=== PATIENT | female | born 1970 | race Caucasian/White ===

== ENCOUNTER → 2021-10-05 | Outpatient (CLI) | payer BC ==
[~2021-10-05] MED LIST: ACET500; ESTRTP VAG; FISH1000 PO; LEVFLO500 PO; METF500 PO; METR500 PO; MOXI400 PO; MULVITMIND PO; OXYACE5T PO; PRED20; RXNEOPOLHC AS; VITAMIN B PO; VITAMIN D PO; Vitamin C100 M1 PO
[2021-10-07 13:12] LABS: CHLAMYDIA BY NAA Negative (Negative); GONOCOCCUS BY NAA Negative (Negative); TRICH VAG BY NAA Negative (Negative)
== END | disposition home or self-care (01) ==
LOC: LAB SHORT 08:24
PROVIDERS: Physician Assistant
DX: B37.3 Candidiasis of vulva and vagina (principal); R21 Rash and other nonspecific skin eruption
CPT/HCPCS: 87070; 87075; 87205; 87491; 87591; 87661

== ENCOUNTER 2021-10-26 05:53 | Day surgery (SDC) | payer BC | END 2021-10-26 23:26 | disposition home or self-care (01) | LOC: WOUND 05:53 | DX: T81.31XD Disruption of external operation (surgical) wound, not elsewhere classified, subsequent encounter (principal); Z98.82 Breast implant status; Z88.0 Allergy status to penicillin; Z88.1 Allergy status to other antibiotic agents; Z88.2 Allergy status to sulfonamides; Z87.891 Personal history of nicotine dependence | CPT/HCPCS: A9270; G0463 ==

== ENCOUNTER 2021-11-02 04:54 | Day surgery (SDC) | payer BC | END 2021-11-02 23:47 | disposition home or self-care (01) | LOC: WOUND 04:54 | DX: T81.31XA Disruption of external operation (surgical) wound, not elsewhere classified, initial encounter (principal); Y83.8 Other surgical procedures as the cause of abnormal reaction of the patient, or of later complication, without mention of misadventure at the time of the procedure | CPT/HCPCS: A9270; G0463 ==

== ENCOUNTER 2021-11-16 02:19 | Day surgery (SDC) | payer BC | END 2021-11-16 22:47 | disposition home or self-care (01) | LOC: WOUND 02:19 | DX: T81.31XA Disruption of external operation (surgical) wound, not elsewhere classified, initial encounter (principal); Y83.8 Other surgical procedures as the cause of abnormal reaction of the patient, or of later complication, without mention of misadventure at the time of the procedure; Z98.890 Other specified postprocedural states | CPT/HCPCS: A9270; G0463 ==

== ENCOUNTER 2021-11-30 01:51 | Day surgery (SDC) | payer BC | END 2021-11-30 22:54 | disposition home or self-care (01) | LOC: WOUND 01:51 | DX: T81.31XD Disruption of external operation (surgical) wound, not elsewhere classified, subsequent encounter (principal) | CPT/HCPCS: G0463 ==

== ENCOUNTER 2024-01-28 22:16 | Emergency (ER) | payer BC ==
[~2024-01-28] VITALS: Ht 162.6 cm; Wt 99.8 kg
[2024-01-28] MEDS ORDERED: Ondansetron HCl 2 MG / ML 2ML Vial IV PRN (22:35)
[2024-01-28 23:01] LABS: BASOPHILS ABSOLUTE AUTO 0.02 K/mm3 (0.00-0.23); BASOPHILS PERCENT AUTO 0 % (0-2); EOSINOPHILS ABSOLUTE AUTO 0.03 K/mm3 (0.00-0.68); EOSINOPHILS PERCENT AUTO 0 % (0-6); Hematocrit 41.6 % (33.0-51.0); Hemoglobin 14.5 g/dL (11.5-16.0); IMMATURE GRAN ABSOLUTE AUTO 0.03 K/mm3 (0.00-0.10); IMMATURE GRAN PERCENT AUTO 0 % (0-1); LYMPHOCYTES ABSOLUTE AUTO 0.49 K/mm3 (0.84-5.20); LYMPHOCYTES PERCENT AUTO 4 % (21-46); MONOCYTES ABSOLUTE AUTO 0.59 K/mm3 (0.16-1.47); MONOCYTES PERCENT AUTO 5 % (4-13); Mean Corpuscular HGB 32.8 pg (26.0-34.0); Mean Corpuscular HGB Conc 34.9 g/dL (31.5-36.5); Mean Corpuscular Volume 94 fL (80-100); Mean Platelet Volume 9.4 fL (9.1-12.4); NEUTROPHILS ABSOLUTE AUTO 11.36 K/mm3 (1.96-9.15); NEUTROPHILS PERCENT AUTO 91 % (41-73); Platelet Count 243 K/mm3 (150-400); RDW Coefficient Variation 13.1 % (11.7-14.2); RDW Standard Deviation 45.4 fL (35.1-46.3); Red Blood Cell Count 4.42 M/mm3 (3.80-5.20); White Blood Cell Count 12.52 K/mm3 (4.00-11.30)
[2024-01-28 23:19] LABS: Albumin/Globulin Ratio 1.2 (0.8-1.8); Bilirubin, Total 0.6 mg/dL (0.1-1.0); Bun/Creatinine Ratio 24.9 (12.0-20.0); Calcium, Blood 8.7 mg/dL (8.5-10.1); Creatinine, Blood 0.64 mg/dL (0.40-1.00); Globulin, Blood 3.2 g/dL (2.2-4.0); Total Protein, Blood 7.2 g/dL (6.4-8.2)
[2024-01-29 02:22] LABS: Source, Urine Clean Catch
[2024-01-29 02:25] LABS: Appearance, Urine Clear (Clear); Bilirubin, Urine Neg (Neg); Blood, Urine 3+ (Neg); Color, Urine Yellow (P-Yellow); Glucose Qualitative, Urine Neg (Neg); Ketones, Urine 2+ (Neg); Leukocyte Esterase, Urine Neg (Neg); Nitrite, Urine Neg (Neg); Protein, Urine Neg (Neg); Urobilinogen, Urine NORM (Normal)
[2024-01-29 02:32] LABS: Bacteria Few /hpf; Red Blood Cells, Urine 0-2 /hpf (0-2); Squamous Epithelial Cells Few /hpf (Few); White Blood Cells, Urine Not Seen /hpf (0-5)
[2024-01-29] MEDS ORDERED: NS 1,000 ML IV SCH (03:00)
[2024-01-29] MEDS ORDERED: Droperidol 5 mg/2 ml Vial IV ONE (03:05)
[2024-01-29] MEDS ORDERED: Ketorolac Tromethamine 30mg Vial IV ONE (03:05)
[2024-01-29] MEDS ORDERED: ONDA4ODT MM (04:39)
[2024-01-29] MEDS ORDERED: RX Prepack 2 Tabs Ondansetron ODT 4MG UD ONE (04:40)
[2024-01-29 05:07] VITALS: BP 145/72
== END 2024-01-29 05:10 | disposition home or self-care (01) ==
LOC: ER 22:16
PROVIDERS: Student in an Organized Health Care Education/Training Program
DX: K52.9 Noninfective gastroenteritis and colitis, unspecified (principal); Z88.0 Allergy status to penicillin; Z88.2 Allergy status to sulfonamides; Z88.1 Allergy status to other antibiotic agents; Z79.899 Other long term (current) drug therapy; Z79.84 Long term (current) use of oral hypoglycemic drugs; Z79.52 Long term (current) use of systemic steroids; Z87.891 Personal history of nicotine dependence
CPT/HCPCS: 80053; 81001; 83690; 85025; 96361; 96374; 96375; 99283; A9270; J1790; J1885; J7030

== ENCOUNTER → 2024-10-07 | Outpatient (CLI) | payer BC ==
[~2024-10-07] MED LIST changes: +ONDA4ODT MM
[2024-10-09 16:31] LABS: HSV 1 SUBTYPE BY PCR Not Detected; HSV 2 SUBTYPE BY PCR Detected; HSV SUBTYPE SOURCE VAGINAL LESION
== END ==
LOC: LAB SHORT 13:10 → LAB 13:10
PROVIDERS: Family Medicine
DX: N89.8 Other specified noninflammatory disorders of vagina (principal)
CPT/HCPCS: 87529